=== PATIENT | female | born 1970 | race Caucasian/White ===

== ENCOUNTER 2017-05-01 09:38 | Emergency (ER) | payer OTHER ==
[~2017-05-01] VITALS: Ht 152.4 cm; Wt 67.6 kg
[2017-05-01] MEDS ORDERED: ZANTAC150 MG PO (11:08)
== END 2017-05-01 11:21 | disposition home or self-care (01) ==
LOC: ED 09:38
DX: R10.11 Right upper quadrant pain (principal); F17.200 Nicotine dependence, unspecified, uncomplicated
CPT/HCPCS: 76705; 80053; 81001; 82150; 83690; 84703; 85025; 99284